=== PATIENT | male | born 1965 ===

== ENCOUNTER → 2023-05-02 | Outpatient (CLI) | payer MEDICAID | LOC: RAD 16:32 | DX: M89.38 Hypertrophy of bone, other site (principal); M40.50 Lordosis, unspecified, site unspecified ==

== ENCOUNTER → 2024-02-21 | Outpatient (CLI) | payer MEDICAID ==
[2024-02-21 16:14] LABS: BASO # 0.03 K/mm3 (0.02-0.10); EOS # 0.11 K/mm3 (0.04-0.40); EOS % 1.5 % (0.0-4.0); HEMATOCRIT 44.9 % (42.0-52.0); HEMOGLOBIN 14.6 g/dL (13.5-18.0); LYMPH# 2.14 K/mm3 (1.50-4.00); MEAN CELL VOLUME 89 fl (78-100); MEAN CORPUSCULAR HEMOGLOBIN 29 pg (27-31); MEAN CORPUSCULAR HGB CONC 33 g/dL (33-37); MONO # 0.58 K/mm3 (0.20-0.80); NEU # 4.43 K/mm3 (1.40-6.50); PLATELET COUNT 240 K/mm3 (130-400); RED BLOOD COUNT 5.04 M/mm3 (4.20-5.60); RED CELL DISTRIBUTION WIDTH 12.6 % (11.5-14.5); WHITE BLOOD COUNT 7.3 K/mm3 (4.8-10.8)
[2024-02-21 16:20] LABS: ALBUMIN 4.3 g/dL (3.5-5.0)
[2024-02-21 16:21] LABS: CALCIUM 9.8 mg/dL (8.3-10.5)
[2024-02-21 16:22] LABS: TOTAL PROTEIN 7.2 g/dL (6.4-8.3)
[2024-02-21 16:24] LABS: TOTAL BILIRUBIN 0.3 mg/dL (0.2-1.2)
== END ==
LOC: LAB 15:41
PROVIDERS: Physician Assistant
DX: Z12.5 Encounter for screening for malignant neoplasm of prostate (principal); K90.9 Intestinal malabsorption, unspecified; E78.5 Hyperlipidemia, unspecified; M25.561 Pain in right knee; M25.512 Pain in left shoulder; M25.551 Pain in right hip